=== PATIENT | male | born 1970 | race Caucasian/White ===

== ENCOUNTER 2021-10-11 15:06 | Outpatient (CLI) | payer BC, SELFPAY ==
[2021-10-11 15:32] VITALS: BP 159/103; PULSE 78; RESP 16; TEMP 36.8; O2SAT 100; BMI 39.3
[2021-10-11] MEDS: 0.9% Saline Lock 10 ML Syringe IV (15:45)
[2021-10-11 16:15] VITALS: BP 135/94; PULSE 78; RESP 16; TEMP 36.9; O2SAT 100
[2021-10-11 17:13] VITALS: BP 136/92; PULSE 72; RESP 16; TEMP 36.8; O2SAT 100
== END 2021-10-11 23:59 | disposition home or self-care (01) ==
LOC: MS3OUT 15:08 → MS3 15:08
PROVIDERS: PCP Family Medicine; Referring Provider Nurse Practitioner Adult Health; Visit Provider Nurse Practitioner Adult Health
DX: Z23 Encounter for immunization (principal); U07.1 COVID-19
CPT/HCPCS: J7050; M0247; A4216; Q0247